=== PATIENT | female | born 1970 | race Caucasian/White ===

== ENCOUNTER 2017-04-24 06:07 | Emergency (ER) | payer MEDICAID ==
[~2017-04-24] VITALS: Ht 170.2 cm; Wt 57.2 kg
[~2017-04-24 06:07] MED LIST: ALBU6.7H INH; ALBU6.7H3 IH; CEPH500C5 PO; CLIN-79 PO; CLIN-80 PO; DIPH25CA83 PO; FLUT16SP26 BOTHNARES; HYDR-569 PO; LORA10TA7 PO; METR500T4 PO; NABU500T2 PO; NITR100C6 PO; PHEN-716 PO; PHEN-873 PO; PROC-8 PO; SUMA50TA PO
[2017-04-24] MEDS ORDERED: diphenhydrAMINE 25mg capsule PO ONE (06:25)
[2017-04-24] MEDS ORDERED: proCHLORperazine 10mg tablet PO ONE (06:25)
[2017-04-24] MEDS ORDERED: divalproex sodium 250mg tablet PO ONE (06:25)
[2017-04-24] MEDS ORDERED: ketorolac trometh inj. 60 MG/2 ML VIAL IM ONE (06:25)
[2017-04-24 07:04] VITALS: BP 157/97
== END 2017-04-24 06:35 | disposition home or self-care (01) ==
LOC: ER 06:07
DX: G43.909 Migraine, unspecified, not intractable, without status migrainosus (principal); I10 Essential (primary) hypertension; J45.909 Unspecified asthma, uncomplicated; G89.29 Other chronic pain; M54.9 Dorsalgia, unspecified; F15.10 Other stimulant abuse, uncomplicated; F11.10 Opioid abuse, uncomplicated; F17.200 Nicotine dependence, unspecified, uncomplicated; Z59.0 Homelessness; Z98.890 Other specified postprocedural states; Z90.89 Acquired absence of other organs; Z88.0 Allergy status to penicillin; Z88.6 Allergy status to analgesic agent; Z88.5 Allergy status to narcotic agent; Z79.899 Other long term (current) drug therapy
CPT/HCPCS: 96372; 99284; J1885; Q0163; Q0164

== ENCOUNTER 2017-05-28 21:01 | Emergency (ER) | payer MEDICAID ==
[~2017-05-28] VITALS: Ht 172.7 cm; Wt 55.0 kg
[2017-05-28 21:07] VITALS: BP 133/88
[2017-05-28] MEDS ORDERED: CLIN300C3 PO (21:50)
[2017-05-28] MEDS ORDERED: CLOT12CR TOP (21:50)
== END 2017-05-28 22:01 | disposition home or self-care (01) ==
LOC: ER 21:01
DX: L03.317 Cellulitis of buttock (principal); L03.115 Cellulitis of right lower limb; I10 Essential (primary) hypertension; J45.909 Unspecified asthma, uncomplicated; G89.29 Other chronic pain; F15.10 Other stimulant abuse, uncomplicated; F11.10 Opioid abuse, uncomplicated; Z59.0 Homelessness; Z88.0 Allergy status to penicillin; Z88.6 Allergy status to analgesic agent
CPT/HCPCS: 99283

== ENCOUNTER 2017-06-02 01:43 | Inpatient (IN) | payer MEDICAID ==
[~2017-06-02] VITALS: Ht 172.7 cm; Wt 55.6 kg
[~2017-06-02 01:43] MED LIST changes: +CLIN300C3 PO; +CLOT12CR TOP
[2017-06-02] MEDS ORDERED: CefTRIAXone 2gm/NS 100ml IVPB 100 ML IV ONE (02:20)
[2017-06-02] MEDS ORDERED: normal saline 1000ML IV soln IV ONE (02:20)
[2017-06-02] MEDS ORDERED: vancomycin/NS 1 GM ADD-VANTAGE 250 ML IV ONE (02:20)
[2017-06-02 02:56] LABS: BASOPHILS # (AUTO) 0.1 X10'3 (0-0.2); BASOPHILS % (AUTO) 0.9 % (0-1); EOSINOPHILS # (AUTO) 0.3 X10'3 (0-0.9); HEMATOCRIT 36.7 % (35.0-45.0); HEMOGLOBIN 12.8 g/dl (12.0-16.0); LYMPHOCYTES # (AUTO) 2.4 X10'3 (1.1-4.8); LYMPHOCYTES % (AUTO) 37.3 % (21-51); MEAN CORPUSCULAR HGB CONC 34.9 % (33.0-36.5); MEAN CORPUSCULAR VOLUME 88.9 FL (78-98); MEAN PLATELET VOLUME 7.7 FL (7.4-10.4); MONOCYTES # (AUTO) 0.5 X10'3 (0-0.9); MONOCYTES % (AUTO) 8.5 % (2-12); NEUTROPHILS # (AUTO) 3.1 X10'3 (1.8-7.7); NEUTROPHILS % (AUTO) 49.3 % (42-75); PLATELET COUNT 159 X10'3 (140-440); RED BLOOD COUNT 4.13 X10'6 (4.20-5.60); RED CELL DISTRIBUTION WIDTH 12.2 % (11.5-14.5); WHITE BLOOD COUNT 6.4 X10'3 (4.5-11.0)
[2017-06-02 03:02] LABS: INR 1.1 INR; PARTIAL THROMBOPLASTIN TIME 28 SECONDS (22-32); PROTHROMBIN TIME 11.1 SECONDS (9.0-12.0)
[2017-06-02 03:13] LABS: ALANINE AMINOTRANSFERASE 83 U/L (12-78); ALBUMIN 3.1 G/DL (3.4-5.0); ALBUMIN/GLOBULIN RATIO 0.9 (1.1-1.5); ALKALINE PHOSPHATASE 69 IU/L (46-116); ANION GAP 9 (8-16); ASPARTATE AMINO TRANSFERASE 67 U/L (10-37); BILIRUBIN,TOTAL 0.4 MG/DL (0.1-1.0); BLOOD UREA NITROGEN 18 MG/DL (7-18); BUN/CREATININE RATIO 22.2 (6.6-38.0); CALCIUM 8.4 MG/DL (8.5-10.1); CHLORIDE 105 MMOL/L (99-107); CREATININE 0.81 MG/DL (0.40-0.90); GLUCOSE 176 MG/DL (70-104); SODIUM 140 MMOL/L (135-145); TOTAL CARBON DIOXIDE 26.1 MMOL/L (24-32); TOTAL PROTEIN 6.7 G/DL (6.4-8.2); eGFR 76 ML/MIN
[2017-06-02 03:14] LABS: POTASSIUM 4.2 MMOL/L (3.5-5.1)
[2017-06-02 04:18] LABS: URINE HCG NEGATIVE (NEG)
[2017-06-02] MEDS ORDERED: diphenhydrAMINE 50 mg/ml inj IV ONE (04:35)
[2017-06-02] MEDS ORDERED: diphenhydrAMINE 50 mg/ml inj IV PRN (04:35)
[2017-06-02] MEDS ORDERED: magnesium hydroxide 30ml (MOM) UD suspension PO PRN (04:40)
[2017-06-02] MEDS ORDERED: acetaminophen 325mg tablet PO PRN (04:40)
[2017-06-02] MEDS ORDERED: mag hydrox/Alum hydrox/simeth 30ml oral suspension PO PRN (04:40)
[2017-06-02] MEDS ORDERED: ondansetron/PF 4mg/2ml inj IV PRN (04:40)
[2017-06-02 05:20] VITALS: BP 153/99
[2017-06-02] MEDS ORDERED: HYDROcodone/acetaminophen 10/325mg tab PO PRN (06:10)
[2017-06-02] MEDS ORDERED: buprenorphine/naloxone 2-0.5mg sublingual tablet SL SCH (08:00)
[2017-06-02] MEDS ORDERED: heparin, porcine 5000 units/ml vial SQ SCH (08:00)
[2017-06-02] MEDS ORDERED: cefazolin 1gm/NS 100mL 100 ML IV SCH (08:00)
[2017-06-02] MEDS ORDERED: sulindac 150mg tablet PO SCH (08:00)
[2017-06-02] MEDS ORDERED: albuterol 2.5 MG/3 ML nebule NEB SCH (08:00)
== END 2017-06-02 07:00 | disposition left against medical advice (07) | DRG 383 ==
LOC: ER 01:43 → ED HOLD 04:36 → SUR 3N 05:15
PROVIDERS: ADMIT Internal Medicine; ATTEND Family Medicine
DX: L03.317 Cellulitis of buttock (principal); F11.20 Opioid dependence, uncomplicated; I10 Essential (primary) hypertension; F15.90 Other stimulant use, unspecified, uncomplicated; F17.210 Nicotine dependence, cigarettes, uncomplicated; J45.909 Unspecified asthma, uncomplicated; Z53.21 Procedure and treatment not carried out due to patient leaving prior to being seen by health care provider; G43.909 Migraine, unspecified, not intractable, without status migrainosus; G89.29 Other chronic pain; M54.9 Dorsalgia, unspecified; Z59.0 Homelessness; Z68.1 Body mass index [BMI] 19.9 or less, adult; Z88.5 Allergy status to narcotic agent; Z88.0 Allergy status to penicillin
CPT/HCPCS: 36415; 80053; 81025; 83605; 84145; 85025; 85610; 85730; 87040; 96365; 96368; 99285; J0696; J1200; J3370; J7030

== ENCOUNTER 2017-06-09 13:30 | Emergency (ER) | payer MEDICAID ==
[~2017-06-09] VITALS: Ht 172.7 cm; Wt 56.8 kg
[2017-06-09 13:38] VITALS: BP 142/100
== END 2017-06-09 16:30 | disposition left against medical advice (07) ==
LOC: ER 13:30
DX: G43.909 Migraine, unspecified, not intractable, without status migrainosus (principal); Z53.21 Procedure and treatment not carried out due to patient leaving prior to being seen by health care provider

== ENCOUNTER 2017-12-17 13:40 | Emergency (ER) | payer MEDICAID ==
[~2017-12-17] VITALS: Ht 162.6 cm; Wt 52.3 kg
[~2017-12-17 13:40] MED LIST changes: -CLIN-79 PO; -CLIN-80 PO; +CLIN150C8 PO; +CLIN300C85 PO
[2017-12-17 13:48] VITALS: BP 141/106
[2017-12-17] MEDS ORDERED: CLIN300C85 PO (14:27)
== END 2017-12-17 14:41 | disposition home or self-care (01) ==
LOC: ER 13:41
DX: S61.411A Laceration without foreign body of right hand, initial encounter (principal); I10 Essential (primary) hypertension; G89.29 Other chronic pain; J45.909 Unspecified asthma, uncomplicated; G43.909 Migraine, unspecified, not intractable, without status migrainosus; F17.200 Nicotine dependence, unspecified, uncomplicated; F15.90 Other stimulant use, unspecified, uncomplicated; F11.90 Opioid use, unspecified, uncomplicated; Z88.0 Allergy status to penicillin; Z88.6 Allergy status to analgesic agent; Z88.1 Allergy status to other antibiotic agents; Z79.899 Other long term (current) drug therapy; Z90.89 Acquired absence of other organs; Z56.0 Unemployment, unspecified; Z59.0 Homelessness; Z60.2 Problems related to living alone; W25.XXXA Contact with sharp glass, initial encounter; Y93.H1 Activity, digging, shoveling and raking; Y92.89 Other specified places as the place of occurrence of the external cause; Y99.8 Other external cause status
CPT/HCPCS: 99283; A6222; A6255

== ENCOUNTER 2018-01-20 00:54 | Emergency (ER) | payer MEDICAID ==
[~2018-01-20] VITALS: Ht 172.7 cm; Wt 50.0 kg
[~2018-01-20 00:54] MED LIST changes: +PHEN-786 PO; -PHEN-873 PO
[2018-01-20] MEDS ORDERED: ketorolac trometh. 30mg/ml inj. IV ONE (01:15)
[2018-01-20] MEDS ORDERED: metoclopramide 5 mg/ml inj IV ONE (01:15)
[2018-01-20] MEDS ORDERED: diphenhydrAMINE 50 mg/ml inj IV ONE (01:15)
[2018-01-20] MEDS ORDERED: TRAM50TA2 PO (02:25)
[2018-01-20 02:54] VITALS: BP 118/79
== END 2018-01-20 02:58 | disposition home or self-care (01) ==
LOC: ER 00:54
DX: G43.909 Migraine, unspecified, not intractable, without status migrainosus (principal); I10 Essential (primary) hypertension; J45.909 Unspecified asthma, uncomplicated; G89.29 Other chronic pain; F15.90 Other stimulant use, unspecified, uncomplicated; F11.90 Opioid use, unspecified, uncomplicated; Z60.2 Problems related to living alone; Z59.0 Homelessness; Z56.0 Unemployment, unspecified; Z88.0 Allergy status to penicillin; Z88.5 Allergy status to narcotic agent; Z88.1 Allergy status to other antibiotic agents; Z88.6 Allergy status to analgesic agent; Z79.2 Long term (current) use of antibiotics; Z79.899 Other long term (current) drug therapy
CPT/HCPCS: 96374; 96375; 99284; J1200; J1885; J2765

== ENCOUNTER 2018-01-29 22:03 | Emergency (ER) | payer MEDICAID ==
[~2018-01-29] VITALS: Ht 172.7 cm; Wt 51.3 kg
[~2018-01-29 22:03] MED LIST changes: +HYDR-4383 PO; -HYDR-569 PO; +TRAM50TA2 PO
[2018-01-29] MEDS ORDERED: METH4TAB3 PO (22:45)
[2018-01-29] MEDS ORDERED: predniSONE 20 mg tablet PO ONE (22:45)
[2018-01-29] MEDS ORDERED: diphenhydrAMINE 25mg capsule PO ONE (22:45)
[2018-01-29 23:16] VITALS: BP 164/97
== END 2018-01-29 23:19 | disposition home or self-care (01) ==
LOC: ER 22:03
DX: L23.7 Allergic contact dermatitis due to plants, except food (principal); R50.9 Fever, unspecified; I10 Essential (primary) hypertension; G43.909 Migraine, unspecified, not intractable, without status migrainosus; J45.909 Unspecified asthma, uncomplicated; G89.29 Other chronic pain; F15.90 Other stimulant use, unspecified, uncomplicated; F11.90 Opioid use, unspecified, uncomplicated; F17.210 Nicotine dependence, cigarettes, uncomplicated; Z88.0 Allergy status to penicillin; Z88.6 Allergy status to analgesic agent; Z88.1 Allergy status to other antibiotic agents; Z79.899 Other long term (current) drug therapy; Z98.890 Other specified postprocedural states; Z90.89 Acquired absence of other organs; Z56.0 Unemployment, unspecified; Z59.0 Homelessness
CPT/HCPCS: 99283; J7512; Q0163

== ENCOUNTER 2018-05-11 19:41 | Emergency (ER) | payer MEDICAID ==
[~2018-05-11] VITALS: Ht 172.7 cm; Wt 56.0 kg
[~2018-05-11 19:41] MED LIST changes: -CEPH500C5 PO; +METH4TAB3 PO; +METR-159 PO; -METR500T4 PO; -TRAM50TA2 PO
[2018-05-11 19:42] VITALS: BP 190/132
== END 2018-05-11 22:21 | disposition left against medical advice (07) ==
LOC: ER 19:41
DX: G43.909 Migraine, unspecified, not intractable, without status migrainosus (principal); Z53.21 Procedure and treatment not carried out due to patient leaving prior to being seen by health care provider

== ENCOUNTER 2018-05-12 19:43 | Emergency (ER) | payer MEDICAID ==
--- NOTE | 2018-05-12 20:35 | NUR ---
attempted to call pt at home, but number provided was not in service
== END 2018-05-12 20:37 | disposition left against medical advice (07) ==
LOC: ER 19:43
DX: R51 Headache (principal); Z53.21 Procedure and treatment not carried out due to patient leaving prior to being seen by health care provider

== ENCOUNTER 2018-06-07 09:03 | Emergency (ER) | payer MEDICAID ==
[~2018-06-07] VITALS: Ht 172.7 cm; Wt 57.3 kg
[2018-06-07 09:19] VITALS: BP 147/102
[2018-06-07] MEDS ORDERED: CIPR-230 PO (11:34)
[2018-06-07] MEDS ORDERED: buprenorphine/naloxone 8mg/2mg SL tablet SL PRN (12:45)
== END 2018-06-07 13:10 | disposition home or self-care (01) ==
LOC: ER 09:04
DX: S90.32XA Contusion of left foot, initial encounter (principal); M79.671 Pain in right foot; R20.0 Anesthesia of skin; I10 Essential (primary) hypertension; J45.909 Unspecified asthma, uncomplicated; G43.909 Migraine, unspecified, not intractable, without status migrainosus; G89.29 Other chronic pain; F11.90 Opioid use, unspecified, uncomplicated; F15.90 Other stimulant use, unspecified, uncomplicated; Z60.2 Problems related to living alone; Z59.0 Homelessness; Z56.0 Unemployment, unspecified; Z88.0 Allergy status to penicillin; Z88.6 Allergy status to analgesic agent; Z88.1 Allergy status to other antibiotic agents; Z79.899 Other long term (current) drug therapy; Z90.89 Acquired absence of other organs; Z98.890 Other specified postprocedural states; X58.XXXA Exposure to other specified factors, initial encounter; Y93.89 Activity, other specified; Y92.89 Other specified places as the place of occurrence of the external cause; Y99.8 Other external cause status
CPT/HCPCS: 99283

== ENCOUNTER 2018-07-09 09:11 | Emergency (ER) | payer MEDICAID ==
[~2018-07-09] VITALS: Ht 172.7 cm; Wt 57.2 kg
[~2018-07-09 09:11] MED LIST changes: +CLIN-96 PO; -CLIN300C85 PO
[2018-07-09] MEDS ORDERED: ketorolac tromethamine 15mg/ml inj. IM ONE (09:30)
[2018-07-09] MEDS ORDERED: diphenhydrAMINE 50 mg/ml inj IM ONE (09:30)
[2018-07-09] MEDS ORDERED: proCHLORperazine 10 MG/2 ml inj IM ONE (09:30)
[2018-07-09 10:14] VITALS: BP 151/98
== END 2018-07-09 10:15 | disposition home or self-care (01) ==
LOC: ER 09:11
DX: G43.909 Migraine, unspecified, not intractable, without status migrainosus (principal); I10 Essential (primary) hypertension; J45.909 Unspecified asthma, uncomplicated; G89.29 Other chronic pain; F15.10 Other stimulant abuse, uncomplicated; F11.10 Opioid abuse, uncomplicated; Z59.0 Homelessness; Z90.89 Acquired absence of other organs; Z88.0 Allergy status to penicillin; Z88.1 Allergy status to other antibiotic agents; Z91.041 Radiographic dye allergy status; Z88.5 Allergy status to narcotic agent; Z79.899 Other long term (current) drug therapy; Z56.0 Unemployment, unspecified
CPT/HCPCS: 96372; 99283; J0780; J1200; J1885

== ENCOUNTER 2018-07-16 17:37 | Emergency (ER) | payer MEDICAID ==
[~2018-07-16] VITALS: Ht 172.7 cm; Wt 57.3 kg
[2018-07-16 17:48] VITALS: BP 133/94
== END 2018-07-16 19:16 | disposition left against medical advice (07) ==
LOC: ER 17:38
DX: R51 Headache (principal); Z53.21 Procedure and treatment not carried out due to patient leaving prior to being seen by health care provider

== ENCOUNTER 2018-10-13 10:09 | Emergency (ER) | payer MEDICAID ==
[~2018-10-13] VITALS: Ht 172.7 cm; Wt 51.8 kg
[2018-10-13 10:53] LABS: BASOPHILS % (AUTO) 0.9 % (0-1); EOSINOPHILS # (AUTO) 0.3 X10'3 (0-0.9); EOSINOPHILS % (AUTO) 4.4 % (0-6); HEMATOCRIT 45.6 % (35.0-45.0); HEMOGLOBIN 15.4 g/dl (12.0-16.0); LYMPHOCYTES % (AUTO) 51.8 % (21-51); MEAN CORPUSCULAR HEMOGLOBIN 30.8 PG (27.0-31.0); MEAN CORPUSCULAR HGB CONC 33.8 g/dL (33.0-36.5); MEAN PLATELET VOLUME 8.5 FL (7.4-10.4); MONOCYTES # (AUTO) 0.4 X10'3 (0-0.9); MONOCYTES % (AUTO) 6.3 % (2-12); NEUTROPHILS # (AUTO) 2.1 X10'3 (1.8-7.7); NEUTROPHILS % (AUTO) 36.6 % (42-75); PLATELET COUNT 157 X10'3 (140-440); RED BLOOD COUNT 5.01 X10'6 (4.20-5.60); RED CELL DISTRIBUTION WIDTH 12.8 % (11.5-14.5); WHITE BLOOD COUNT 5.7 X10'3 (4.5-11.0)
--- NOTE | 2018-10-13 11:01 | NUR ---
PT REFUSING IV START
[2018-10-13 11:19] LABS: ALANINE AMINOTRANSFERASE 63 U/L (12-78); ALBUMIN 4.1 G/DL (3.4-5.0); ALBUMIN/GLOBULIN RATIO 0.9 (1.1-1.5); ALKALINE PHOSPHATASE 80 IU/L (46-116); ANION GAP 10 (8-16); ASPARTATE AMINO TRANSFERASE 48 U/L (10-37); BILIRUBIN,TOTAL 0.7 MG/DL (0.1-1.0); BLOOD UREA NITROGEN 36 MG/DL (7-18); CALCIUM 9.8 MG/DL (8.5-10.1); CHLORIDE 105 MMOL/L (99-107); CREATININE 1.09 MG/DL (0.40-0.90); POTASSIUM 4.4 MMOL/L (3.5-5.1); SODIUM 138 MMOL/L (135-145); TOTAL CARBON DIOXIDE 23.4 MMOL/L (24-32); TOTAL PROTEIN 8.9 G/DL (6.4-8.2); eGFR 54 ML/MIN
[2018-10-13 11:20] LABS: GLUCOSE 109 MG/DL (70-104)
[2018-10-13 11:23] LABS: D-DIMER 1.86 MG/L FEU (0-0.50)
[2018-10-13 12:00] VITALS: BP 117/76
[2018-10-13] MEDS ORDERED: methylPREDNISolone sod succ 125mg/2ml vial IV ONE (12:15)
[2018-10-13] MEDS ORDERED: diphenhydrAMINE 50 mg/ml inj IV ONE (12:15)
--- NOTE | 2018-10-13 12:17 | NUR ---
PT STATED SHE WANTED TO GO OUT FOR A CIGARETTE. MD WAS IN ROOM AND TOLD PT SHE COULD NOT GO OUT TO SMOKE, THAT SHE MAY HAVE A P.E. AND NEEDED A CTA. PT REFUSED, SAID SHE WAS LEAVING, SIGNED AMA PAPERWORK AND LEFT ER IN [facility]
== END 2018-10-13 12:10 | disposition left against medical advice (07) ==
LOC: ER 10:10
DX: R06.02 Shortness of breath (principal); R07.89 Other chest pain; G43.909 Migraine, unspecified, not intractable, without status migrainosus; I10 Essential (primary) hypertension; J45.909 Unspecified asthma, uncomplicated; G89.29 Other chronic pain; F15.90 Other stimulant use, unspecified, uncomplicated; F11.90 Opioid use, unspecified, uncomplicated; Z98.890 Other specified postprocedural states; Z90.89 Acquired absence of other organs; Z60.2 Problems related to living alone; Z59.0 Homelessness; Z56.0 Unemployment, unspecified; Z88.0 Allergy status to penicillin; Z88.5 Allergy status to narcotic agent; Z88.6 Allergy status to analgesic agent; Z88.1 Allergy status to other antibiotic agents; Z88.8 Allergy status to other drugs, medicaments and biological substances; Z79.899 Other long term (current) drug therapy
CPT/HCPCS: 36415; 71046; 80053; 83605; 83880; 84484; 85025; 85379; 87040; 93005; 99284

== ENCOUNTER 2018-12-17 04:14 | Emergency (ER) | payer MEDICAID ==
[~2018-12-17] VITALS: Ht 172.7 cm; Wt 52.3 kg
[~2018-12-17 04:14] MED LIST changes: -ALBU6.7H INH; +ALBU6.7H9 INH
[2018-12-17 05:21] VITALS: BP 123/89
[2018-12-17] MEDS ORDERED: dexamethasone 0.5 mg/5ml unit-dose oral solution PO STA (05:39)
[2018-12-17] MEDS ORDERED: ondansetron 4mg rapidly disintigrating tab PO ONE (05:40)
[2018-12-17] MEDS ORDERED: ketorolac trometh inj. 60 MG/2 ML VIAL IM ONE (05:40)
[2018-12-17] MEDS ORDERED: dexamethasone 4mg tablet PO STA (05:43)
[2018-12-17] MEDS ORDERED: LISI10TA4 PO (05:46)
== END 2018-12-17 06:17 | disposition home or self-care (01) ==
LOC: ER 04:15
DX: G43.909 Migraine, unspecified, not intractable, without status migrainosus (principal); I10 Essential (primary) hypertension; J45.909 Unspecified asthma, uncomplicated; G89.29 Other chronic pain; Z98.890 Other specified postprocedural states; Z90.89 Acquired absence of other organs; F17.200 Nicotine dependence, unspecified, uncomplicated; F15.90 Other stimulant use, unspecified, uncomplicated; F11.90 Opioid use, unspecified, uncomplicated; Z60.2 Problems related to living alone; Z59.0 Homelessness; Z56.0 Unemployment, unspecified; Z88.0 Allergy status to penicillin; Z88.6 Allergy status to analgesic agent; Z88.5 Allergy status to narcotic agent; Z88.8 Allergy status to other drugs, medicaments and biological substances; Z79.899 Other long term (current) drug therapy
CPT/HCPCS: 96372; 99283; J1885; J2405; J8540

== ENCOUNTER 2019-01-26 20:48 | Emergency (ER) | payer MEDICAID ==
[~2019-01-26] VITALS: Ht 172.7 cm; Wt 48.0 kg
[~2019-01-26 20:48] MED LIST changes: +LISI10TA4 PO
[2019-01-26 20:51] VITALS: BP 120/94
== END 2019-01-26 21:09 | disposition left against medical advice (07) ==
LOC: ER 20:49
DX: S61.011A Laceration without foreign body of right thumb without damage to nail, initial encounter (principal); Z53.21 Procedure and treatment not carried out due to patient leaving prior to being seen by health care provider; W26.0XXA Contact with knife, initial encounter; Y93.89 Activity, other specified; Y92.89 Other specified places as the place of occurrence of the external cause; Y99.9 Unspecified external cause status

== ENCOUNTER 2019-03-11 18:23 | Emergency (ER) | payer MEDICAID ==
[~2019-03-11] VITALS: Ht 172.7 cm; Wt 54.0 kg
[~2019-03-11 18:23] MED LIST changes: +CLIN-90 PO; -CLIN-96 PO
[2019-03-11 18:32] VITALS: BP 153/110
[2019-03-11] MEDS ORDERED: diphenhydrAMINE 25mg capsule PO ONE (19:35)
[2019-03-11] MEDS ORDERED: ketorolac tromethamine 15mg/ml inj. IM ONE (19:35)
[2019-03-11] MEDS ORDERED: proCHLORperazine 10mg tablet PO ONE (19:35)
[2019-03-11] MEDS ORDERED: ONDA4TAB6 PO (20:18)
== END 2019-03-11 20:22 | disposition home or self-care (01) ==
LOC: ER 18:24
DX: G43.909 Migraine, unspecified, not intractable, without status migrainosus (principal); I10 Essential (primary) hypertension; J45.909 Unspecified asthma, uncomplicated; G89.29 Other chronic pain; F15.90 Other stimulant use, unspecified, uncomplicated; F11.90 Opioid use, unspecified, uncomplicated; Z88.0 Allergy status to penicillin; Z88.6 Allergy status to analgesic agent; Z88.1 Allergy status to other antibiotic agents; Z79.2 Long term (current) use of antibiotics; Z79.899 Other long term (current) drug therapy; Z98.890 Other specified postprocedural states; Z90.89 Acquired absence of other organs; Z60.2 Problems related to living alone; Z59.0 Homelessness; Z56.0 Unemployment, unspecified
CPT/HCPCS: 96372; 99283; J1885; Q0163; Q0164

== ENCOUNTER 2019-04-15 20:52 | Emergency (ER) | payer MEDICAID ==
[~2019-04-15] VITALS: Ht 172.7 cm; Wt 54.0 kg
[~2019-04-15 20:52] MED LIST changes: +ONDA4TAB6 PO
[2019-04-15 21:02] VITALS: BP 157/100
== END 2019-04-15 22:53 | disposition left against medical advice (07) ==
LOC: ER 20:52
DX: R51 Headache (principal); Z53.21 Procedure and treatment not carried out due to patient leaving prior to being seen by health care provider

== ENCOUNTER 2019-10-13 11:08 | Emergency (ER) | payer MEDICAID ==
[~2019-10-13] VITALS: Ht 172.7 cm; Wt 56.1 kg
[~2019-10-13 11:08] MED LIST changes: -CLIN-90 PO; +CLIN-97 PO
[2019-10-13 11:30] VITALS: BP 171/112
[2019-10-13 11:52] LABS: CLARITY,URINE CLOUDY (Clear); GLUCOSE, URINE NEGATIVE (Neg); KETONES,URINE NEGATIVE (Neg); LEUKOCYTE ESTERASE ,URINE TRACE (Neg); NITRITES, URINE POSITIVE (Neg); OCCULT BLOOD,URINE SMALL (Neg); PH,URINE 5.5 (4.8-8.0); PROTEIN,URINE NEGATIVE (Neg); UROBILINOGEN,URINE 0.2 E.U/dL (0.2-1.0)
[2019-10-13 11:53] LABS: URINE HCG NEGATIVE (NEG)
[2019-10-13 11:54] LABS: COLOR,URINE DARK YELLOW (Yellow); UA COLLECTION TYPE VOIDED
[2019-10-13 11:58] LABS: BACTERIA,URINE 4+ /HPF (Neg); RBC,URINE 0-2 /HPF (0-2); SQUAMOUS EPITHELIAL CELL,UR MANY /LPF (FEW)
[2019-10-13 11:59] LABS: MUCUS STRANDS MODERATE /LPF (Neg)
[2019-10-13 12:00] LABS: RENAL CELLS, URINE FEW /HPF
--- NOTE | 2019-10-13 12:00 | NUR ---
unable to do culture on ua due to void not dirty catch ua
== END 2019-10-13 13:16 | disposition left against medical advice (07) ==
LOC: ER 11:09
DX: R10.9 Unspecified abdominal pain (principal); R11.10 Vomiting, unspecified; Z53.21 Procedure and treatment not carried out due to patient leaving prior to being seen by health care provider
CPT/HCPCS: 81001; 81025

== ENCOUNTER 2020-02-03 07:46 | Emergency (ER) | payer MEDICAID ==
[~2020-02-03 07:46] MED LIST changes: +NABU-134 PO; -NABU500T2 PO
--- NOTE | 2020-02-03 07:49 | NUR ---
Patient left before triage. When called to triage pt left because her was not able to come in per our policy for Covid-19
== END 2020-02-03 07:52 | disposition left against medical advice (07) ==
LOC: ER 07:46
DX: R51.9 Headache, unspecified (principal); Z53.21 Procedure and treatment not carried out due to patient leaving prior to being seen by health care provider

== ENCOUNTER 2021-03-17 23:07 | Emergency (ER) | payer MEDICAID ==
[~2021-03-17] VITALS: Ht 172.7 cm; Wt 56.8 kg
[~2021-03-17 23:07] MED LIST changes: +LISI10TA27 PO; -LISI10TA4 PO; -NABU-134 PO; +NABU-139 PO
[2021-03-17 23:59] VITALS: BP 109/86
[2021-03-18] MEDS ORDERED: metoclopramide 5 mg/ml inj IV ONE
[2021-03-18] MEDS ORDERED: diphenhydrAMINE 50 mg/ml inj IV ONE
[2021-03-18] MEDS ORDERED: ketorolac trometh. 30mg/ml inj. IV ONE
[2021-03-18] MEDS ORDERED: metoclopramide 5 mg/ml inj IM ONE (00:55)
[2021-03-18] MEDS ORDERED: diphenhydrAMINE 50 mg/ml inj IM ONE (00:55)
== END 2021-03-18 02:43 | disposition home or self-care (01) ==
LOC: ER 23:08
DX: G43.909 Migraine, unspecified, not intractable, without status migrainosus (principal); Z20.822 Contact with and (suspected) exposure to COVID-19; F15.90 Other stimulant use, unspecified, uncomplicated; F11.90 Opioid use, unspecified, uncomplicated; J45.909 Unspecified asthma, uncomplicated; G89.29 Other chronic pain; I10 Essential (primary) hypertension; Z88.0 Allergy status to penicillin; Z88.8 Allergy status to other drugs, medicaments and biological substances; Z91.041 Radiographic dye allergy status; Z88.1 Allergy status to other antibiotic agents; Z79.899 Other long term (current) drug therapy; Z79.2 Long term (current) use of antibiotics; Z56.0 Unemployment, unspecified; Z59.00 Homelessness unspecified
CPT/HCPCS: 71045; 87635; 93005; 96372; 96374; 99285; C9803; J1200; J1885; J2765

== ENCOUNTER 2021-12-17 18:08 | Emergency (ER) | payer MEDICAID ==
[~2021-12-17] VITALS: Ht 172.7 cm; Wt 63.6 kg
[2021-12-17 18:19] VITALS: BP 157/113
== END 2021-12-17 21:53 | disposition left against medical advice (07) ==
LOC: ER 18:15
DX: G43.909 Migraine, unspecified, not intractable, without status migrainosus (principal); Z53.21 Procedure and treatment not carried out due to patient leaving prior to being seen by health care provider

== ENCOUNTER 2023-02-24 17:25 | Emergency (ER) | payer MEDICAID ==
[~2023-02-24] VITALS: Ht 172.7 cm; Wt 63.3 kg
[~2023-02-24 17:25] MED LIST changes: +ALBU6.7H14 INH; -ALBU6.7H9 INH; +CLIN-214 PO; -CLIN150C8 PO
[2023-02-24] MEDS ORDERED: famotidine/PF 10 mg/ml inj IV ONE (17:35)
[2023-02-24] MEDS ORDERED: normal saline 1000ML IV soln IVB ONE (17:35)
[2023-02-24] MEDS ORDERED: ondansetron/PF 4mg/2ml inj IV ONE ×2 (17:35)
[2023-02-24 18:04] LABS: BASOPHILS % (AUTO) 0.4 % (0-1); EOSINOPHILS % (AUTO) 0.6 % (0-6); HEMATOCRIT 42.3 % (35.0-45.0); HEMOGLOBIN 14.3 g/dl (12.0-16.0); LYMPHOCYTES # (AUTO) 0.8 X10'3 (1.1-4.8); LYMPHOCYTES % (AUTO) 10.8 % (21-51); MEAN CORPUSCULAR HEMOGLOBIN 30.2 PG (27.0-31.0); MEAN CORPUSCULAR HGB CONC 33.8 g/dL (33.0-36.5); MEAN CORPUSCULAR VOLUME 89.4 FL (78-98); MEAN PLATELET VOLUME 8.4 FL (7.4-10.4); MONOCYTES # (AUTO) 0.5 X10'3 (0-0.9); MONOCYTES % (AUTO) 6.3 % (2-12); NEUTROPHILS # (AUTO) 6.1 X10'3 (1.8-7.7); NEUTROPHILS % (AUTO) 81.9 % (42-75); PLATELET COUNT 113 X10'3 (140-440); RED BLOOD COUNT 4.73 X10'6 (4.20-5.60); RED CELL DISTRIBUTION WIDTH 12.7 % (11.5-14.5); WHITE BLOOD COUNT 7.4 X10'3 (4.5-11.0)
[2023-02-24 18:16] LABS: ANION GAP 8 (8-16); BILIRUBIN,TOTAL 0.3 MG/DL (0.1-1.0); BLOOD UREA NITROGEN 14 MG/DL (7-18); BUN/CREATININE RATIO 14.3 (10.0-20.0); CALCIUM 9.5 MG/DL (8.5-10.1); CHLORIDE 99 MMOL/L (99-107); CREATININE 0.98 MG/DL (0.40-0.90); GLUCOSE 99 MG/DL (70-104); POTASSIUM 4.5 MMOL/L (3.5-5.1); SODIUM 135 MMOL/L (135-145); TOTAL CARBON DIOXIDE 28.5 MMOL/L (24-32); TOTAL PROTEIN 8.3 G/DL (6.4-8.2); eCRCL 67 ML/MIN; eGFR 60 ML/MIN
[2023-02-24 18:17] LABS: ALANINE AMINOTRANSFERASE 18 U/L (12-78); ALBUMIN 3.8 G/DL (3.4-5.0); ALBUMIN/GLOBULIN RATIO 0.8 (1.1-1.5); ALKALINE PHOSPHATASE 72 IU/L (46-116); ASPARTATE AMINO TRANSFERASE 22 U/L (10-37); LIPASE 27 U/L (16-77)
[2023-02-24 18:29] LABS: ETHANOL < 10 MG/DL (<10)
[2023-02-24] MEDS ORDERED: ONDA4TAB12 PO (18:37)
--- NOTE | 2023-02-24 19:05 | NUR ---
agree with assesment of FOSTER WINDER
[2023-02-24 19:30] LABS: URINE AMPHETAMINE SCREEN POSITIVE (Neg); URINE BARBITUATE SCREEN NEGATIVE (Neg); URINE BENZODIAZEPINES SCREEN NEGATIVE (Neg); URINE CANNABINOID SCREEN NEGATIVE (Neg); URINE COCAINE SCREEN NEGATIVE (Neg); URINE METHADONE SCREEN POSITIVE (Neg); URINE OPIATE SCREEN NEGATIVE (Neg); URINE PHENCYCLIDINE SCREEN NEGATIVE (Neg)
[2023-02-24 19:31] LABS: BILIRUBIN,URINE NEGATIVE (Neg); CLARITY,URINE CLOUDY (Clear); COLOR,URINE YELLOW (Yellow); GLUCOSE, URINE NEGATIVE (Neg); KETONES,URINE NEGATIVE (Neg); LEUKOCYTE ESTERASE ,URINE NEGATIVE (Neg); NITRITES, URINE POSITIVE (Neg); OCCULT BLOOD,URINE SMALL (Neg); PROTEIN,URINE TRACE mg/dl (Neg); UROBILINOGEN,URINE 0.2 E.U/dL (0.2-1.0)
[2023-02-24 19:44] LABS: UA COLLECTION TYPE CLN CATCH MIDSTREAM
[2023-02-24 19:46] LABS: BACTERIA,URINE 4+ /HPF (Neg); SQUAMOUS EPITHELIAL CELL,UR MODERATE /LPF (FEW)
[2023-02-24 19:47] LABS: TRANSITIONAL EPI CELLS,URINE FEW /HPF
[2023-02-24 20:35] VITALS: BP 136/86; PULSE 56; RESP 15; TEMP 97.6; O2SAT 98
== END 2023-02-24 20:38 | disposition home or self-care (01) ==
LOC: ER 17:26
DX: K52.89 Other specified noninfective gastroenteritis and colitis (principal); I10 Essential (primary) hypertension; J45.909 Unspecified asthma, uncomplicated; G89.29 Other chronic pain; M54.9 Dorsalgia, unspecified; F15.10 Other stimulant abuse, uncomplicated; Z88.0 Allergy status to penicillin; Z88.6 Allergy status to analgesic agent; Z79.899 Other long term (current) drug therapy; Z88.5 Allergy status to narcotic agent
CPT/HCPCS: 36415; 80053; 80305; 80320; 81001; 83690; 85025; 87077; 87088; 87186; 96361; 96374; 96375; 99284; J2405; J3490; J7030

== ENCOUNTER 2023-05-17 14:13 | Emergency (ER) | payer MEDICAID ==
[~2023-05-17 14:13] MED LIST changes: +ONDA4TAB12 PO
== END 2023-05-17 15:47 | disposition left against medical advice (07) ==
LOC: ER 14:14
DX: R11.10 Vomiting, unspecified (principal); R51.9 Headache, unspecified; Z53.21 Procedure and treatment not carried out due to patient leaving prior to being seen by health care provider